=== PATIENT | female | born 1950 | race Caucasian/White ===

== ENCOUNTER 2020-10-27 14:34 | Emergency (ER) | payer MEDICARE, BC ==
[~2020-10-27] VITALS: Ht 170.2 cm; Wt 56.4 kg
[2020-10-27 17:00] LABS: BASOPHILS % (AUTO) 0.4 % (0-1); EOSINOPHILS % (AUTO) 0.3 % (0-6); HEMATOCRIT 38.5 % (35.0-45.0); HEMOGLOBIN 12.9 g/dl (12.0-16.0); LYMPHOCYTES # (AUTO) 0.8 X10'3 (1.1-4.8); LYMPHOCYTES % (AUTO) 10.2 % (21-51); MEAN CORPUSCULAR HGB CONC 33.4 g/dL (33.0-36.5); MEAN CORPUSCULAR VOLUME 83.9 FL (78-98); MEAN PLATELET VOLUME 7.3 FL (7.4-10.4); MONOCYTES # (AUTO) 0.7 X10'3 (0-0.9); MONOCYTES % (AUTO) 7.9 % (2-12); NEUTROPHILS # (AUTO) 6.7 X10'3 (1.8-7.7); NEUTROPHILS % (AUTO) 81.2 % (42-75); PLATELET COUNT 459 X10'3 (140-440); RED BLOOD COUNT 4.59 X10'6 (4.20-5.60); RED CELL DISTRIBUTION WIDTH 13.2 % (11.5-14.5); WHITE BLOOD COUNT 8.3 X10'3 (4.5-11.0)
[2020-10-27 17:15] LABS: ALANINE AMINOTRANSFERASE 23 U/L (12-78); ALBUMIN 3.3 G/DL (3.4-5.0); ALBUMIN/GLOBULIN RATIO 0.6 (1.1-1.5); ALKALINE PHOSPHATASE 73 IU/L (46-116); ANION GAP 8 (8-16); ASPARTATE AMINO TRANSFERASE 18 U/L (10-37); BILIRUBIN,TOTAL 0.2 MG/DL (0.1-1.0); BLOOD UREA NITROGEN 14 MG/DL (7-18); CHLORIDE 101 MMOL/L (99-107); GLUCOSE 107 MG/DL (70-104); LIPASE 84 U/L (73-393); POTASSIUM 3.8 MMOL/L (3.5-5.1); SODIUM 139 MMOL/L (135-145); TOTAL CARBON DIOXIDE 29.8 MMOL/L (24-32); TOTAL PROTEIN 8.6 G/DL (6.4-8.2); eGFR 83 ML/MIN
[2020-10-27] MEDS ORDERED: normal saline 1000ml 1,000 ML IV ONE (19:10)
[2020-10-27 19:57] LABS: CLARITY,URINE CLOUDY (Clear); COLOR,URINE YELLOW (Yellow); GLUCOSE, URINE NEGATIVE (Neg); KETONES,URINE 15 mg/dl (Neg); LEUKOCYTE ESTERASE ,URINE TRACE (Neg); NITRITES, URINE NEGATIVE (Neg); OCCULT BLOOD,URINE TRACE-INTACT (Neg); PH,URINE 7.5 (4.8-8.0); PROTEIN,URINE NEGATIVE (Neg); UROBILINOGEN,URINE 0.2 E.U/dL (0.2-1.0)
[2020-10-27 20:08] LABS: UA COLLECTION TYPE VOIDED
[2020-10-27 20:09] LABS: AMORPHOUS PHOSPHATES 1+; BACTERIA,URINE FEW /HPF (Neg); MUCUS STRANDS FEW /LPF (Neg); RBC,URINE 0-2 /HPF (0-2); SQUAMOUS EPITHELIAL CELL,UR FEW /LPF (FEW)
[2020-10-27] MEDS ORDERED: ondansetron/PF 4mg/2ml inj IV ONE (20:30)
[2020-10-27] MEDS ORDERED: ketorolac trometh. 30mg/ml inj. IV ONE (20:30)
[2020-10-27] MEDS ORDERED: HYDROcodone/acetaminophen 5mg/325mg tablet PO ONE (20:30)
[2020-10-27] MEDS ORDERED: ONDA4TAB6 PO (20:32)
[2020-10-27] MEDS ORDERED: HYDR-3965 PO (20:32)
[2020-10-27 21:11] VITALS: BP 146/118
== END 2020-10-27 21:14 | disposition home or self-care (01) ==
LOC: ER 14:35
DX: R10.32 Left lower quadrant pain (principal); R11.0 Nausea; K59.00 Constipation, unspecified; Z88.5 Allergy status to narcotic agent; Z79.899 Other long term (current) drug therapy
CPT/HCPCS: 36415; 74176; 80053; 81001; 83690; 84145; 85025; 87088; 96361; 96374; 96375; 99284; J1885; J2405; J7030

== ENCOUNTER 2020-10-31 21:14 | Emergency (ER) | payer MEDICARE, BC ==
[~2020-10-31] VITALS: Ht 170.2 cm; Wt 54.8 kg
[~2020-10-31 21:14] MED LIST: HYDR-3965 PO; ONDA4TAB6 PO
[2020-10-31] MEDS ORDERED: BUPIVAcaine 0.5% inj/PF 30 ml vial IJ ONE (21:45)
[2020-10-31] MEDS ORDERED: normal saline 1000ML IV soln IVB ONE (22:35)
[2020-10-31] MEDS: diatr meglu/diatrizoate 30ml oral sol.-(3 dose) bottle PO SCH (23:40)
[2020-10-31 23:59] LABS: CLARITY,URINE CLEAR (Clear); COLOR,URINE YELLOW (Yellow); GLUCOSE, URINE NEGATIVE (Neg); KETONES,URINE TRACE mg/dl (Neg); LEUKOCYTE ESTERASE ,URINE SMALL (Neg); NITRITES, URINE NEGATIVE (Neg); OCCULT BLOOD,URINE TRACE-LYSED (Neg); PROTEIN,URINE NEGATIVE (Neg); UA COLLECTION TYPE CLN CATCH MIDSTREAM; UROBILINOGEN,URINE 0.2 E.U/dL (0.2-1.0)
[2020-11-01] MEDS: diatr meglu/diatrizoate 30ml oral sol.-(3 dose) bottle PO SCH ×2 (00:05→00:35)
[2020-11-01 00:07] LABS: BACTERIA,URINE 1+ /HPF (Neg); RBC,URINE 0-2 /HPF (0-2); SQUAMOUS EPITHELIAL CELL,UR MODERATE /LPF (FEW); WBC,URINE 0-4 /HPF (0-4)
[2020-11-01] MEDS ORDERED: iohexol 300mg/ml 100ml inj. ONE (00:58)
[2020-11-01] MEDS ORDERED: ondansetron/PF 4mg/2ml inj IV ONE (01:20)
[2020-11-01] MEDS ORDERED: CIPR-259 PO (02:44)
[2020-11-01] MEDS ORDERED: METR500T PO (02:44)
[2020-11-01 03:22] VITALS: BP 152/78
== END 2020-11-01 03:24 | disposition home or self-care (01) ==
LOC: ER 21:14
DX: S39.012A Strain of muscle, fascia and tendon of lower back, initial encounter (principal); R10.30 Lower abdominal pain, unspecified; K52.9 Noninfective gastroenteritis and colitis, unspecified; N20.0 Calculus of kidney; R11.0 Nausea; Z88.5 Allergy status to narcotic agent; Z79.2 Long term (current) use of antibiotics; Z79.899 Other long term (current) drug therapy; X58.XXXA Exposure to other specified factors, initial encounter; Y93.89 Activity, other specified; Y92.89 Other specified places as the place of occurrence of the external cause; Y99.8 Other external cause status; M54.9 Dorsalgia, unspecified
CPT/HCPCS: 74177; 81001; 87088; 96374; 99285; J2405; J7030; Q9963; Q9967; 20552